=== PATIENT | male | born 1970 | race Caucasian/White ===

== ENCOUNTER 2020-03-15 08:00 | Outpatient (CLI) | payer OTHER ==
--- NOTE | 2020-03-15 13:54 | XRAY Report ---
PROCEDURE: Cervical Spine 2 View INDICATIONS: NECK PAIN, ACUTE TECHNIQUE: 3 view(s) of the cervical spine were acquired. COMPARISON: None. FINDINGS: Bones: No fractures or dislocations to the C7-T1 level. There is straightening of normal cervical lo rdosis. Degenerative endplate changes and bilateral facet hypertrophic changes are noted at C4-5 thro ugh C6-7 levels. The lateral masses of C1 appear intact on the odontoid view. No suspicious bony les ions. Soft tissues: No prevertebral soft tissue swelling. IMPRESSION: No acute cervical spine fracture or dislocation. Degenerative disc disease in mid to low er cervical spine as above. Reviewed by: Leon Alicea MD on 03/15/2020 12:53 PM [facility] Approved by: Leon Alicea MD on 03/15/2020 12:53 PM [facility] Station ID: [id number]
== END 2020-03-15 23:59 ==
LOC: DI.S 08:00
PROVIDERS: ATTEND Physician Assistant
DX: M50.321 Other cervical disc degeneration at C4-C5 level (principal)